=== PATIENT | male | born 1975 | race Caucasian/White ===

== ENCOUNTER 2016-10-31 13:30 | Inpatient (IN) | payer OTHER ==
[~2016-10-31] VITALS: Ht 188 cm; Wt 94.3 kg
[~2016-10-31 13:30] MED LIST: BUPIVACAINE/PF 0.5% ONE; CEPH-368 PO; CHOL10002 PO; DOCO100C PO; HYDR-3144 PO; IBUP800T PO; MULT-185 PO; TURM1CAP PO
[2016-10-31 14:46] VITALS: BP 123/80
[2016-10-31] MEDS ORDERED: LIDOCAINE 1%, 2ML ONE (15:03)
[2016-10-31] MEDS ORDERED: LACTATED RINGERS 1,000 ML IV SCH (15:41)
[2016-10-31] MEDS ORDERED: MIDAZOLAM 1 MG/ML, 2ML ONE (16:02)
[2016-10-31] MEDS ORDERED: FENTANYL PF 250 MCG/5ML ONE (16:02)
[2016-10-31] MEDS ORDERED: CEFAZOLIN 1,000 MG ONE (18:00)
[2016-10-31] MEDS ORDERED: METOCLOPRAMIDE 5 MG/ML, 2ML ONE (18:00)
[2016-10-31] MEDS ORDERED: ONDANSETRON 2MG/ML, 2ML ONE (18:00)
[2016-10-31] MEDS ORDERED: PROPOFOL 10 MG/ML, 20ML ONE (18:00)
[2016-10-31] MEDS ORDERED: PROPOFOL 10 MG/ML, 50ML ONE (18:00)
[2016-10-31] MEDS ORDERED: DEXAMETHASONE 4 MG/ML, 1ML ONE (18:00)
[2016-10-31] MEDS ORDERED: SCOPOLAMINE PATCH, 1.5MG PATCH.TD72 TD ONE (18:05)
[2016-10-31] MEDS ORDERED: ROPIvacaine/PF 0.2%, 100ML 550 ML (check volume) INJ ONE (18:30)
[2016-10-31] MEDS ORDERED: MEPERIDINE/PF 25MG/0.5ML ONE (20:29)
[2016-10-31] MEDS ORDERED: OXYcodone 5 MG/5 ML ORAL.SOL UDC PO PRN (21:30)
[2016-10-31] MEDS ORDERED: ACETAMINOPHEN 325 MG TABLET PO PRN (21:30)
[2016-10-31] MEDS ORDERED: ONDANSETRON 2MG/ML, 2ML IVPush PRN (21:30)
[2016-10-31] MEDS ORDERED: FENTANYL PF 100 MCG/2ML IV PRN (21:30)
[2016-10-31] MEDS ORDERED: MEPERIDINE/PF 25MG/0.5ML IVPush PRN (21:30)
[2016-10-31] MEDS ORDERED: HYDROmorphone 1 MG/ML, 1ML IV PRN (21:30)
[2016-10-31] MEDS ORDERED: ONDANSETRON 2MG/ML, 2ML IV PRN (23:30)
[2016-10-31] MEDS ORDERED: morphine SULFATE 10 MG/ML, 1ML IV PRN (23:30)
[2016-11-01] MEDS: LACTATED RINGERS 1,000 ML IV SCH ×2 (00:37→12:50)
[2016-11-01] MEDS: KETOROLAC 30 MG/1 ML IV SCH ×3 (00:37→16:26)
[2016-11-01] MEDS: CEFAZOLIN PMX 2GM/50ML 50 ML IVPB SCH ×3 (01:41→17:32)
[2016-11-01 03:22] VITALS: BP 97/60
[2016-11-01] MEDS: ENOXAPARIN 40 MG/0.4 ML SQ SCH (05:25)
[2016-11-01 06:51] VITALS: BP 113/65
[2016-11-01] MEDS ORDERED: HYDROcodone/APAP 10/325 MG TABLET ONE (09:56)
[2016-11-01] MEDS ORDERED: HOME MED SHEET MC SCH (10:30)
[2016-11-01] MEDS: D5%-LACTATED RINGERS 1,000 ML IV SCH ×2 (13:30→21:30)
[2016-11-01 14:28] VITALS: BP 121/67
[2016-11-01 20:15] VITALS: BP 112/55
[2016-11-01] MEDS: HYDROcodone/APAP 10/325 MG TABLET PO PRN (21:21)
[2016-11-02] MEDS: CEFAZOLIN PMX 2GM/50ML 50 ML IVPB SCH ×3 (01:59→16:46)
[2016-11-02] MEDS: LACTATED RINGERS 1,000 ML IV SCH ×2 (02:10→15:30)
[2016-11-02] MEDS: HYDROcodone/APAP 10/325 MG TABLET PO PRN ×4 (03:14→22:08)
[2016-11-02 05:46] VITALS: BP 114/72
[2016-11-02] MEDS: D5%-LACTATED RINGERS 1,000 ML IV SCH ×3 (06:01→21:30)
[2016-11-02] MEDS: ENOXAPARIN 40 MG/0.4 ML SQ SCH (06:02)
[2016-11-02 07:06] VITALS: BP 124/71
[2016-11-02 14:27] VITALS: BP 130/79
[2016-11-02 18:26] VITALS: BP 120/69
[2016-11-03] MEDS: CEFAZOLIN PMX 2GM/50ML 50 ML IVPB SCH ×3 (01:54→15:39)
[2016-11-03 02:01] VITALS: BP 108/61
[2016-11-03] MEDS: D5%-LACTATED RINGERS 1,000 ML IV SCH ×3 (03:51→20:12)
[2016-11-03] MEDS: ENOXAPARIN 40 MG/0.4 ML SQ SCH (06:00)
[2016-11-03] MEDS: HYDROcodone/APAP 10/325 MG TABLET PO PRN (06:37)
[2016-11-03 06:52] VITALS: BP 142/79
[2016-11-03] MEDS ORDERED: PROPOFOL 10 MG/ML, 50ML ONE (10:37)
[2016-11-03] MEDS ORDERED: METOCLOPRAMIDE 5 MG/ML, 2ML ONE (10:37)
[2016-11-03] MEDS ORDERED: CEFAZOLIN 1,000 MG ONE (10:37)
[2016-11-03] MEDS ORDERED: DEXAMETHASONE 4 MG/ML, 1ML ONE (10:37)
[2016-11-03] MEDS ORDERED: ONDANSETRON 2MG/ML, 2ML ONE (10:37)
[2016-11-03] MEDS ORDERED: ROCURONIUM 10 MG/ML ONE (10:37)
[2016-11-03 13:53] VITALS: BP 130/76
[2016-11-03] MEDS ORDERED: EPINEPHRINE 1 MG/ML, 1ML ONE (14:22)
[2016-11-03] MEDS ORDERED: LIDOCAINE-MPF 2% ,5ML ONE (14:22)
[2016-11-03] MEDS ORDERED: HEPARIN 1,000 UNITS/ML, 10ML ONE (14:22)
[2016-11-03] MEDS ORDERED: PAPAVERINE 30 MG/ML, 2ML ONE (14:22)
[2016-11-03] MEDS ORDERED: BUPIVACAINE/PF 0.25% ONE (14:22)
[2016-11-03] MEDS ORDERED: PROTAMINE SULFATE 10 MG/ML, 5ML ONE (14:22)
[2016-11-03] MEDS ORDERED: BUPIVACAINE/PF 0.5% ONE (14:44)
[2016-11-03] MEDS ORDERED: KETAMINE 10 MG/ML, 20ML ONE (15:04)
[2016-11-03] MEDS ORDERED: HYDROmorphone 1 MG/ML, 1ML ONE (15:04)
[2016-11-03] MEDS ORDERED: FENTANYL PF 250 MCG/5ML ONE (15:04)
[2016-11-03] MEDS ORDERED: MINERAL OIL 10 ML VIAL MC ONE (15:08)
[2016-11-03] MEDS ORDERED: MIDAZOLAM 1 MG/ML, 2ML IV PRN (16:30)
[2016-11-03] MEDS ORDERED: hydrALAzine 20 MG/ML, 1ML IV PRN (16:30)
[2016-11-03] MEDS ORDERED: OXYcodone 5 MG/5 ML ORAL.SOL UDC PO PRN (16:30)
[2016-11-03] MEDS ORDERED: LABETALOL 5MG/ML, 20ML IV PRN (16:30)
[2016-11-03] MEDS ORDERED: MEPERIDINE/PF 25MG/0.5ML IVPush PRN (16:30)
[2016-11-03] MEDS ORDERED: PROMETHAZINE 25 MG/ML, 1ML IV PRN (16:30)
[2016-11-03] MEDS ORDERED: ONDANSETRON 2MG/ML, 2ML IVPush PRN (16:30)
[2016-11-03] MEDS ORDERED: ACETAMINOPHEN 325 MG TABLET PO PRN (16:30)
[2016-11-03] MEDS: HYDROmorphone 1 MG/ML, 1ML IV PRN ×3 (18:45→19:10)
[2016-11-03] MEDS ORDERED: FENTANYL PF 100 MCG/2ML ONE (18:51)
[2016-11-03] MEDS ORDERED: HYDROmorphone 2 MG/ML, 1ML ONE (18:51)
[2016-11-03] MEDS: FENTANYL PF 100 MCG/2ML IV PRN ×2 (18:53→19:11)
[2016-11-03 20:06] VITALS: BP 117/71
[2016-11-03] MEDS: morphine SULFATE 10 MG/ML, 1ML IV PRN ×2 (20:21→22:40)
[2016-11-04 00:30] VITALS: BP_SYST 114; BP_SYST 147; BP_DIAS 61; BP_DIAS 86
[2016-11-04] MEDS: CEFAZOLIN PMX 2GM/50ML 50 ML IVPB SCH ×3 (00:57→16:55)
[2016-11-04] MEDS: morphine SULFATE 10 MG/ML, 1ML IV PRN ×2 (02:45→07:10)
[2016-11-04 04:10] VITALS: BP 118/67
[2016-11-04] MEDS: D5%-LACTATED RINGERS 1,000 ML IV SCH ×3 (04:34→20:48)
[2016-11-04 07:00] VITALS: BP 119/73
[2016-11-04] MEDS: HYDROcodone/APAP 10/325 MG TABLET PO PRN ×4 (08:47→20:48)
[2016-11-04] MEDS: ENOXAPARIN 40 MG/0.4 ML SQ SCH (08:47)
[2016-11-04 15:51] VITALS: BP 120/69
[2016-11-04 21:18] VITALS: BP 113/73
[2016-11-05] MEDS: HYDROcodone/APAP 10/325 MG TABLET PO PRN ×6 (00:29→20:25)
[2016-11-05] MEDS: CEFAZOLIN PMX 2GM/50ML 50 ML IVPB SCH ×3 (00:30→17:03)
[2016-11-05] MEDS: D5%-LACTATED RINGERS 1,000 ML IV SCH ×2 (01:47→17:08)
[2016-11-05 04:35] VITALS: BP 121/83
[2016-11-05] MEDS: morphine SULFATE 10 MG/ML, 1ML IV PRN (04:49)
[2016-11-05] MEDS ORDERED: ROPIvacaine/PF 0.2%, 100ML 550 ML (check volume) INJ ONE (07:30)
[2016-11-05] MEDS: ENOXAPARIN 40 MG/0.4 ML SQ SCH (09:00)
[2016-11-05 09:17] VITALS: BP 124/79
[2016-11-05 13:51] VITALS: BP 127/83
[2016-11-05 19:13] VITALS: BP 126/82
[2016-11-06] MEDS: CEFAZOLIN PMX 2GM/50ML 50 ML IVPB SCH ×2 (01:48→09:52)
[2016-11-06] MEDS: HYDROcodone/APAP 10/325 MG TABLET PO PRN ×3 (01:48→13:30)
[2016-11-06 01:57] VITALS: BP 118/69
[2016-11-06 07:04] VITALS: BP 116/73
[2016-11-06] MEDS ORDERED: DOCUSATE 100 MG CAPSULE PO SCH (09:00)
[2016-11-06] MEDS: ENOXAPARIN 40 MG/0.4 ML SQ SCH (09:51)
[2016-11-06 13:45] VITALS: BP 124/67
== END 2016-11-06 15:00 | disposition home or self-care (01) | DRG 494 ==
LOC: OR 13:30 → EDSTATUS 15:45 → 4NOR 22:30 → OR 22:46 → INTOOBSV 22:47 → 4NOR 22:47 → OBSVTOIN 11-01 11:26 → DCLOUNGE 11-06 14:25
PROVIDERS: ADMIT Orthopaedic Surgery; ATTEND Orthopaedic Surgery
PROC: 0QUJ07Z Supplement Right Fibula with Autologous Tissue Substitute, Open Approach (ICD-10-PCS; 2016-10-31)
PROC: 0QBG0ZZ Excision of Right Tibia, Open Approach (ICD-10-PCS; 2016-10-31)
PROC: 0QPGX5Z Removal of External Fixation Device from Right Tibia, External Approach (ICD-10-PCS; 2016-10-31)
PROC: 3E0T3BZ Introduction of Anesthetic Agent into Peripheral Nerves and Plexi, Percutaneous Approach (ICD-10-PCS; 2016-10-31)
PROC: 0QSJ04Z Reposition Right Fibula with Internal Fixation Device, Open Approach (ICD-10-PCS; principal; 2016-10-31 18:00)
PROC: 0QSG04Z Reposition Right Tibia with Internal Fixation Device, Open Approach (ICD-10-PCS; 2016-10-31 18:00)
PROC: 0KU Muscles, Supplement (ICD-10-PCS; 2016-11-03)
PROC: 0KBR0ZZ Excision of Left Upper Leg Muscle, Open Approach (ICD-10-PCS; 2016-11-03)
DX: S82.871A Displaced pilon fracture of right tibia, initial encounter for closed fracture (principal); S82.491A Other fracture of shaft of right fibula, initial encounter for closed fracture; W19.XXXA Unspecified fall, initial encounter; Y93.89 Activity, other specified; Y92.89 Other specified places as the place of occurrence of the external cause; Y99.8 Other external cause status; Z87.891 Personal history of nicotine dependence; Z82.61 Family history of arthritis
CPT/HCPCS: 36415; 76001; 82565; C1729; G0378; J0171; J0690; J1100; J1170; J1644; J1650; J1885; J2250; J2405; J2704; J2720; J2795; J3010; J3490; J2270; J2440; J2765; J7120; J7121